=== PATIENT | male | born 1955 | race Caucasian/White ===

== ENCOUNTER 2018-06-14 16:37 | Emergency (ER) | payer MEDICARE, MEDICAID ==
[~2018-06-14] VITALS: Ht 167.6 cm; Wt 75.0 kg
[2018-06-14 17:00] VITALS: BP 117/81
[2018-06-14] MEDS ORDERED: BECL7.3A INH (18:33)
[2018-06-14] MEDS ORDERED: ipratropium/albuterol 3ml nebule NEB ONE (18:35)
== END 2018-06-14 19:06 | disposition home or self-care (01) ==
LOC: ER 16:38
DX: J45.901 Unspecified asthma with (acute) exacerbation (principal); Z88.8 Allergy status to other drugs, medicaments and biological substances; Z79.899 Other long term (current) drug therapy
CPT/HCPCS: 94640; 94760; 99283